=== PATIENT | female | born 1980 | race Caucasian/White ===

== ENCOUNTER 2017-01-15 16:47 | Emergency (ER) | payer BC ==
[~2017-01-15] VITALS: Ht 165.1 cm; Wt 59.0 kg
[2017-01-15 16:49] VITALS: Ht 165.1 cm; Wt 59.0 kg
[2017-01-15] MEDS ORDERED: HYDROCODONE/APAP (5/325) TAB PO STA (17:41)
[2017-01-15 18:08] LABS: BASOPHIL # 0.1 10^3/ul (0.0-0.1); BASOPHILS % 0.4 % (0.0-2.0); EOSINOPHILS # 0.2 10^3/ul (0.0-0.5); EOSINOPHILS % 1.5 % (0.0-7.0); HEMATOCRIT 36.4 % (37.0-47.0); HEMOGLOBIN 12.1 g/dl (12.0-16.0); LYMPHOCYTES # 2.3 10^3/ul (0.8-2.9); LYMPHOCYTES % 20.2 % (15.0-51.0); MEAN CORPUSCULAR HEMOGLOBIN 28.6 pg (29.0-33.0); MEAN CORPUSCULAR HGB CONC 33.2 g/dl (32.0-37.0); MEAN CORPUSCULAR VOLUME 86.1 fl (82.0-101.0); MEAN PLATELET VOLUME 10.6 fl (7.4-10.4); MONOCYTE # 0.6 10^3/ul (0.3-0.9); MONOCYTES % 5.5 % (0.0-11.0); PLATELET COUNT 261 10^3/UL (140-415); RED BLOOD COUNT 4.23 10^6/ul (4.20-5.40); RED CELL DISTRIBUTION WIDTH 12.1 % (11.5-14.5); WHITE BLOOD COUNT 11.3 10^3/ul (4.8-10.8)
--- NOTE | 2017-01-15 18:41 | RADRPT ---
PROCEDURE: FIRST TRIMESTER OBSTETRICAL ULTRASOUND: CLINICAL INDICATION: 36 years of age, female. Vaginal bleeding . COMPARISON: None available. TECHNIQUE: Real-time sonographic images of the pelvis were obtained transabdominally and transvagina lly utilizing christie scale, color, and Doppler imaging. FINDINGS: LMP October 26, 2016 EGA by dates: 11 weeks 4 days ROMY by dates: August 02, 2017 Uterus: Anteverted . There is an exophytic subserosal fibroid arising from the right uterine body th at measures 4.4 x 5 x 4.5 cm. Gestational sac: There is a sac-like structure within the endometrial cavity in the lower uterine se gment with a mean sac diameter of 4.7 cm. Negative for evidence of a yolk sac or embryo. Estimated gestational age by mean sac diameter would be 10 weeks 4 days. Cervix: Closed. Right ovary: Size: 2.7 x 1.6 x 1.9 cm. (Vol 4.2 mL) Appearance: Normal morphology. No masses. Normal arterial flow to duplex Doppler. Left ovary: Size: 1.9 x 2.6 x 1.1 cm. (Vol 2.8 mL) Appearance: Normal morphology. No masses. Normal arterial flow to duplex Doppler. Bladder: Visualized bladder is normal. Other: No free fluid. IMPRESSION: Intrauterine gestational sac in the lower uterine segment with a mean sac diameter of 4.7 cm without an embryo or yolk sac. The appearance is in keeping with a failed . Gynecologic consulta tion is advised. 5 cm exophytic subserosal fibroid right uterine body. Adnexa appear normal. Negative for an adnexal mass. Findings were discussed with Provider Teri Kumar by Dr. Jazmin Castellanos on January 15, 2017 at 06:3 5 p.m. RPTAT: HCTS Physician Derrell Date Time Electronically viewed and signed by Physician Derrell on 01/15/2017 18:41 CS/
[2017-01-15] MEDS ORDERED: ONDANSETRON 4 MG INJ IV STA (19:06)
[2017-01-15 19:24] LABS: ADD UMIC YES; UR ASCORBIC ACID NEGATIVE (NEGATIVE); UR BILIRUBIN (Dip) NEGATIVE (NEGATIVE); UR BLOOD (Dip) 3+ mg/dL (NEGATIVE); UR CLARITY SLIGHTLY CLOUDY (CLEAR); UR COLOR YELLOW (YELLOW); UR GLUCOSE (Dip) NEGATIVE (NEGATIVE); UR KETONES (Dip) 1+ mg/dL (NEGATIVE); UR LEUKOCYTE ESTERASE (Dip) NEGATIVE Leu/ul (NEGATIVE); UR MUCUS FEW /HPF (NONE SEEN); UR NITRITE (Dip) NEGATIVE (NEGATIVE); UR RBC > 182 /HPF (0-5); UR SPECIFIC GRAVITY (Dip) 1.028 (1.003-1.030); UR TOTAL PROTEIN (Dip) 1+ mg/dl (NEGATIVE); UR UROBILINOGEN (Dip) NEGATIVE (NEGATIVE)
[2017-01-15] MEDS ORDERED: morphine 10 MG INJ IV ONE (19:30)
[2017-01-15] MEDS ORDERED: HYDR-906 PO (19:36)
[2017-01-15 19:56] VITALS: BP 105/61; PULSE 63; RESP 17
--- NOTE | 2017-01-15 20:39 | ERD ---
ER Documentation Chief Complaint Date/Time DATE: 01/15/17 TIME: 20:36 Chief Complaint VAG BLLED SINCE YESTERDAY WITH CARMPING , 11 WEEKS PREG HPI This is a 36-year-old female presents to the ER with vaginal bleeding that started 4 days ago. Patient states that today bleeding became worse around 1 PM and since 1 PM she changed her pad 4 times. Patient is complaining of intermittent severe pelvic cramping. Patient denies any urinary frequency or dysuria. She denies fevers or chills. She denies any vaginal discharge. A2. ROS 12 point review of systems was done, all negative except per HPI. Medications Home Meds Active Scripts Hydrocodone/Acetaminophen ([place] 5-325 Tablet) 1 Each Tablet, 1 TAB PO Q6H Y for PAIN, #20 TAB Prov:LEO MARADIAGA 01/15/17 Allergies Allergies: Coded Allergies: No Known Allergy (Unverified , 01/15/17) PMhx/Soc Medical and Surgical Hx: pt denies Medical Hx, pt denies Surgical Hx Hx Miscellaneous Medical Probl: Yes (PARA 3 ) Hx Alcohol Use: No Hx Substance Use: No Hx Tobacco Use: No Smoking Status: Never smoker Physical Exam Vitals Vital Signs Date Time Temp Pulse Resp B/P Pulse Ox O2 Delivery O2 Flow Rate FiO2 01/15/17 19:56 63 17 105/61 100 Room Air 01/15/17 16:49 97.5 76 18 118/83 99 Physical Exam GENERAL: The patient is well developed and appropriate for usual state of health , in no apparent distress. HEENT: Atraumatic. CHEST: Clear to auscultation bilaterally. There are no rales, wheezes or rhonchi. HEART: Regular rate and rhythm. No murmurs, clicks, rubs or gallops. ABDOMEN: Soft, nontender and nondistended. Good bowel sounds. No rebound or guarding. No gross peritonitis. No gross organomegaly or masses. No Augustin sign or McBurney point tenderness. BACK: No midline or flank tenderness. NEURO: Alert and oriented. Result Diagram: 01/15/17 2073 Results 24 hrs Laboratory Tests Test 01/15/17 17:51 01/15/17 18:30 01/15/17 18:48 White Blood Count 11.310^3/ul Red Blood Count 4.2310^6/ul Hemoglobin 12.1g/dl Hematocrit 36.4% Mean Corpuscular Volume 86.1fl Mean Corpuscular Hemoglobin 28.6pg Mean Corpuscular Hemoglobin Concent 33.2g/dl Red Cell Distribution Width 12.1% Platelet Count 95958^3/UL Mean Platelet Volume 10.6fl Neutrophils % 72.0% Lymphocytes % 20.2% Monocytes % 5.5% Eosinophils % 1.5% Basophils % 0.4% Nucleated Red Blood Cells % 0.0/100WBC Neutrophils # (Manual) 8.110^3/ul Lymphocytes # 2.310^3/ul Monocytes # 0.610^3/ul Eosinophils # 0.210^3/ul Basophils # 0.110^3/ul Nucleated Red Blood Cells # 0.010^3/ul Beta HCG, Quantitative 4300.1mIU/ml Urine Color YELLOW Urine Clarity SLIGHTLY CLOUDY Urine pH 6.0 Urine Specific [place] 1.028 Urine Ketones 1+mg/dL Urine Nitrite NEGATIVEmg/dL Urine Bilirubin NEGATIVEmg/dL Urine Urobilinogen NEGATIVEmg/dL Urine Leukocyte Esterase NEGATIVELeu/ul Urine Microscopic RBC > 182/HPF Urine Microscopic WBC 1/HPF Urine Mucus FEW/HPF Urine Hemoglobin 3+mg/dL Urine Glucose NEGATIVEmg/dL Urine Total Protein 1+mg/dl Current Medications Medications (Trade) Dose Ordered Sig/Cher Route PRN Reason Start Time Stop Time Status Last Admin Dose Admin Acetaminophen/ Hydrocodone Bitart ([place] (5/325)) 1 tab ONCE STAT PO 01/15/17 17:41 01/15/17 17:42 DC 01/15/17 17:54 Morphine Sulfate (morphine) 5 mg ONCE ONCE IV 01/15/17 19:30 01/15/17 19:31 DC 01/15/17 19:10 Ondansetron HCl (Zofran Inj) 4 mg ONCE STAT IV 01/15/17 19:06 01/15/17 19:07 DC 01/15/17 19:10 Procedures/MDM Differential diagnosis: Threatened , missed , incomplete , ectopic , molar , UTI, pyelonephritis. Unfortunately patient does appear to be having a miscarriage, there is an empty intrauterine stational sac, consistent with failed . At this time patient is hemodynamically stable and her hemoglobin is normal. Her pain was controlled with [place] and morphine. Patient will be sent home with [place]. She is to follow-up with her primary care doctor within 1-2 days or return to ER sooner if symptoms worsen. My medical decision making sure with the patient she understands and agrees with plan. Departure Diagnosis: Primary Impression: Vaginal bleeding in patient at less than 20 weeks ges... Condition: Stable Patient Instructions: Miscarriage Referrals: LIZZETTE SUERO (PCP) Additional Instructions: Call your primary care doctor TOMORROW for an appointment during the next 1-2 days.See the doctor sooner or return here if your condition worsens before your appointment time. LEO MARADIAGA Jan 15, 2017 20:38
== END 2017-01-15 19:58 | disposition home or self-care (01) ==
LOC: FTE 16:47
DX: O20.9 Hemorrhage in early pregnancy, unspecified (principal); R10.2 Pelvic and perineal pain; Z3A.10 10 weeks gestation of pregnancy
CPT/HCPCS: 36415; 76801; 76817; 81001; 84702; 85025; 86900; 86901; 96374; 96375; J2270; J2405; Z7502; Z7610

== ENCOUNTER 2018-03-26 06:26 | Inpatient (IN) | END 2018-03-28 12:17 | disposition home or self-care (01) | DRG 743 ==